=== PATIENT | male | born 1995 | race Hispanic/Latino ===

== ENCOUNTER 2020-08-31 19:38 | Emergency (ER) | payer OTHER ==
[2020-08-31] MEDS ORDERED: KETOROLAC 60 MG VIAL (30MG/ML) ONE (20:41)
[2020-08-31] MEDS ORDERED: ORPHENADRINE CITRATE 30 MG/ML ML ONE (20:41)
== END 2020-08-31 21:09 | disposition home or self-care (01) ==
LOC: EDH 19:38
DX: S46.911A Strain of unspecified muscle, fascia and tendon at shoulder and upper arm level, right arm, initial encounter (principal); M25.511 Pain in right shoulder; M62.838 Other muscle spasm; F41.9 Anxiety disorder, unspecified; F32.9 Major depressive disorder, single episode, unspecified; Z72.0 Tobacco use; W18.39XA Other fall on same level, initial encounter; Y93.89 Activity, other specified; Y92.89 Other specified places as the place of occurrence of the external cause; Y99.8 Other external cause status
CPT/HCPCS: 73030; 96372 ×2; 99284; J1885; J2360